=== PATIENT | male | born 1985 ===

== ENCOUNTER 2018-06-20 10:50 | Emergency (ER) | payer SELFPAY ==
[2018-06-20 11:00] VITALS: O2SAT 100
[2018-06-20] MEDS ORDERED: Aspirin 325 mg EC Tablets PO STA (13:07)
[2018-06-20] MEDS ORDERED: Aspirin 325 mg EC Tablets PO ONE (13:25)
[2018-06-20 13:46] LABS: BASO % 0.4 % (0.0-2.0); EOS # 0.1 K/uL (0.0-0.7); EOS % 1.5 % (0.0-4.0); HEMOGLOBIN 15.3 g/dL (12.0-18.0); LYMPH # 1.9 K/uL (1.0-4.3); LYMPH % 49.8 % (20.0-40.0); MEAN CELL VOLUME 88.3 fL (80.0-94.0); MEAN CORPUSCULAR HEMOGLOBIN 29.5 pg (27.0-31.0); MEAN CORPUSCULAR HGB CONC 33.4 g/dL (33.0-37.0); MEAN PLATELET VOLUME 8.5 fL (7.2-11.7); MONO # 0.4 K/uL (0.0-0.8); MONO % 10.7 % (0.0-10.0); NEUT # 1.4 K/uL (1.8-7.0); NEUT % 37.6 % (50.0-75.0); NRBC % 0.1 % (0.0-2.0); RBC 5.18 Mil/uL (4.40-5.90); RED CELL DISTRIBUTION WIDTH 13.6 % (11.5-14.5)
[2018-06-20 13:47] LABS: WHITE BLOOD COUNT 3.8 K/uL (4.8-10.8)
[2018-06-20 13:51] LABS: ALB/GLOB RATIO 1.5 (1.0-2.1); ALBUMIN 4.3 g/dL (3.5-5.0); ALT/SGPT 51 U/L (21-72); AST/SGOT 56 U/L (17-59); BLOOD UREA NITROGEN 17 mg/dL (9-20); CALCIUM 9.3 mg/dl (8.6-10.4); GFR NON-AFRICAN AMERICAN > 60; LIPASE 34 U/L (23-300)
[2018-06-20 13:52] LABS: INR 1.1
--- NOTE | 2018-06-20 13:57 | RAD ---
HISTORY: chest pain COMPARISON: None available. TECHNIQUE: Chest PA and lateral, 2 views FINDINGS: LUNGS: No focal consolidation. Please note that chest x-ray has limited sensitivity for the detection of pulmonary masses. PLEURA: No significant pleural effusion identified. No definite pneumothorax . CARDIOVASCULAR: The cardiomediastinal silhouette appears within normal limits of size. No atherosclerotic calcification present. OSSEOUS STRUCTURES: No acute osseous abnormality identified. VISUALIZED UPPER ABDOMEN: Unremarkable. OTHER FINDINGS: None. IMPRESSION: No acute findings identified.
[2018-06-20 14:01] LABS: B-TYPE NATRIURETIC PEPTIDE 15.3 pg/mL (0-450)
[2018-06-20 15:04] LABS: BARBITURATES, UR NEGATIVE (NEGATIVE); BENZODIAZEPINES, UR NEGATIVE (NEGATIVE); OPIATES, UR NEGATIVE (NEGATIVE); PHENCYCLIDINE, UR NEGATIVE (NEGATIVE)
--- NOTE | 2018-06-20 15:54 | C.PDOC ---
History Of Present Illness 32 y/o male,with no significant PMhx, presents to the ER complaining of chest pain which has been present for the past 4 days. Patient reports that the pain radiates down the left arm.Patient states that he began feeling the pain while he was playing soccer. He notes that he took Aspirin with relief after the game. he states that he had similar pain the next day and he took Aspirin with relief. Currently, patient denies having chest pain, shortness of breath, fever,chills, nausea,vomiting, and leg swelling. Time Seen by Provider: 06/20/18 12:37 Chief Complaint (Nursing): Chest Pain History Per: Patient History/Exam Limitations: no limitations Onset/Duration Of Symptoms: Days Current Symptoms Are (Timing): Still Present Severity: Moderate Past Medical History Reviewed: Historical Data, Nursing Documentation, Vital Signs Vital Signs: Last Vital Signs Temp 97.6 F 06/20/18 10:56 Pulse 70 06/20/18 10:56 Resp 20 06/20/18 10:56 BP 139/90 06/20/18 10:56 Pulse Ox 100 06/20/18 10:56 Primary Care Provider: FAMILY PROVIDER,NO - Medical History PMH: No Chronic Diseases Denies: Anxiety Surgical History: No Surg Hx Family History: States: No Known Family Hx - Social History Hx Alcohol Use: No Hx Substance Use: No - Immunization History Hx Tetanus Toxoid Vaccination: No Hx Influenza Vaccination: No Hx Pneumococcal Vaccination: No Review Of Systems Except As Marked, All Systems Reviewed And Found Negative. Constitutional: Negative for: Fever, Chills Cardiovascular: Positive for: Chest Pain Respiratory: Negative for: Shortness of Breath Gastrointestinal: Negative for: Nausea, Vomiting, Abdominal Pain Physical Exam - Physical Exam Appears: Non-toxic, No Acute Distress Skin: Normal Color, Warm, Dry Head: Atraumatic, Normacephalic Eye(s): bilateral: Normal Inspection Nose: Normal Oral Mucosa: Moist Neck: Supple Chest: Symmetrical Cardiovascular: Rhythm Regular Respiratory: Normal Breath Sounds, No Rales, No Rhonchi, No Wheezing Gastrointestinal/Abdominal: Normal Exam, Soft, No Tenderness, No Guarding, No Rebound Neurological/Psych: Oriented x3, Normal Speech ED Course And Treatment - Laboratory Results Result Diagrams: 06/20/18 13:26 06/20/18 13:26 Lab Results: PT 12.0 SECONDS (9.7-12.2) 06/20/18 13:26 INR 1.1 06/20/18 13:26 APTT 31.0 SECONDS (21-34) 06/20/18 13:26 D-Dimer, Quantitative < 200 ng/mlDDU (0-243) 06/20/18 14:58 Troponin I < 0.0120 ng/mL (0.00-0.120) 06/20/18 13:26 NT-Pro-B Natriuret Pep 15.3 pg/mL (0-450) 06/20/18 13:26 Total Bilirubin 0.8 mg/dL (0.2-1.3) 06/20/18 13:26 AST 56 U/L (17-59) 06/20/18 13:26 ALT 51 U/L (21-72) 06/20/18 13:26 Alkaline Phosphatase 74 U/L (38-126) 06/20/18 13:26 Total Protein 7.2 g/dL (6.3-8.3) 06/20/18 13:26 Albumin 4.3 g/dL (3.5-5.0) 06/20/18 13:26 Globulin 2.9 gm/dL (2.2-3.9) 06/20/18 13:26 Albumin/Globulin Ratio 1.5 (1.0-2.1) 06/20/18 13:26 Lipase 34 U/L (23-300) 06/20/18 13:26 ECG: Interpreted By Me, Viewed By Me ECG Rhythm: Sinus Bradycardia Interpretation Of ECG: Sinus Bradycardia with LVH and early repolarization Rate From EC O2 Sat by Pulse Oximetry: 100 (RA) Pulse Ox Interpretation: Normal - Other Rad CXR X-Ray: Viewed By Me, Read By Radiologist Interpretation: HISTORY: chest pain. COMPARISON: None available. TECHNIQUE: Chest PA and lateral, 2 views. FINDINGS: LUNGS: No focal consolidation. Please note that chest x-ray has limited sensitivity for the detection of pulmonary masses. PLEURA: No significant pleural effusion identified. No definite pneumothorax . CARDIOVASCULAR: The cardiomediastinal silhouette appears within normal limits of size. No atherosclerotic calcification present. OSSEOUS STRUCTURES: No acute osseous abnormality identified. VISUALIZED UPPER ABDOMEN: Unremarkable. OTHER FINDINGS: None. IMPRESSION: No acute findings identified. Medical Decision Making Medical Decision Making: Plan: --Labs --EKG --CXR Labs unremarkable. Patient declned 3 hour trop. States need to drive back home. Disposition Counseled Patient/Family Regarding: Studies Performed, Diagnosis, Need For Followup - Disposition Referrals: [facility] [Outside] [facility] [Outside] Disposition: HOME/ ROUTINE Disposition Time: 16:30 Additional Instructions: EVAN KHALIL, thank you for letting us take care of you today. Your provider was Kendra Hathaway MD and you were treated for CHEST PAIN/LT ARM PAIN. The emergency medical care you received today was directed at your acute symptoms. If you were prescribed any medication, please fill it and take as directed. It may take several days for your symptoms to resolve. Return to the Emergency Department if your symptoms worsen, do not improve, or if you have any other problems. Please contact your doctor or call one of the physicians/clinics you have been referred to that are listed on the Patient Visit Information form that is included in your discharge packet. Bring any paperwork you were given at d ischarge with you along with any medications you are taking to your follow up visit. Our treatment cannot replace ongoing medical care by a primary care provider outside of the emergency department. Thank you for allowing the [facility] team to be part of your care today. Instructions: Chest Pain (DC) Forms: Gen Discharge Inst [employer], [employer] ([employer]) Print Language: LATVIAN - POA Present On Arrival: None - Clinical Impression Clinical Impression: Chest pain - Scribe Statement The provider has reviewed the documentation as recorded by the [facility] [employer] Provider Attestation: All medical record entries made by the Fish were at my direction and personally dictated by me. I have reviewed the chart and agree that the record accurately reflects my personal performance of the history, physical exam, medical decision making, and the department course for this patient. I have also personally directed, reviewed, and agree with the discharge instructions and disposition.
[2018-06-20 16:32] VITALS: BP 146/86; PULSE 59; RESP 16; TEMP 97.8
--- NOTE | 2018-06-23 16:21 | CARD ---
APPROVED REPORT Date of service: 06/20/2018 EKG Measurement Heart [id number] <Conclusion> Sinus bradycardia with sinus arrhythmia Minimal voltage criteria for LVH, may be normal variant ST elevation, consider early repolarization, pericarditis, or injury Abnormal ECG
== END 2018-06-20 16:44 | disposition home or self-care (01) ==
LOC: EDBD 10:50 → C.ER 10:50
DX: R07.9 Chest pain, unspecified (principal)
CPT/HCPCS: 71046; 80053; 83690; 83880; 84484; 85025; 85378; 85610; 85730; 93005; 99284; G0480